=== PATIENT | female | born 1940 | race Caucasian/White ===

== ENCOUNTER → 2016-06-05 | Outpatient (CLI) | payer MEDICARE, BC ==
[~2016-06-05] MED LIST: ASPI-535 PO; CITA10TA84 PO; DIPH25CA6 PO; LORA-401 PO; MONT10TA21 PO; ZOC20 PO; ZOLP10TA5 PO
--- NOTE | 2016-06-05 17:48 | RADRPT ---
PROCEDURE: Left knee radiographs. CLINICAL INDICATION: Left knee pain. Postop. TECHNIQUE: Three views. Weight bearing. Frontal, lateral, and patellar view. COMPARISON: 07/27/2014. FINDINGS: There is no fracture or dislocation. The soft tissues are normal. 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 A screw is noted in the lateral femoral condyle as seen previously. There is no joint effusion. IMPRESSION: 1. Satisfactory postoperative appearance of the left knee. RPTAT: QQ .Fabiano Rojo MD, MD Date Time Electronically viewed and signed by .Fabiano Rojo MD, on 06/05/2016 17:48 .R/
--- NOTE | 2016-06-05 17:49 | RADRPT ---
PROCEDURE: Right knee radiographs. CLINICAL INDICATION: Right knee pain. TECHNIQUE: Four views. Weight bearing. Frontal, lateral, oblique, and patellar view. COMPARISON: 07/27/2014. FINDINGS: There is no fracture or dislocation. The soft tissues are normal. There are degenerative changes with osteophytes arising from all 3 joint compartment margins. There is medial and lateral joint compartment narrowing and chondrocalcinosis. There is no lytic or blastic lesion. There is no radiopaque foreign body. IMPRESSION: 1. Degenerative changes of the right knee. 2. No acute abnormality. 3. No change from 07/27/2014. RPTAT: QQ .Fabiano Rojo MD, MD Date Time Electronically viewed and signed by .Fabiano Rojo MD, MD on 06/05/2016 17:49 .R/
== END | disposition home or self-care (01) ==
LOC: HKI 09:23
PROVIDERS: ATTEND Orthopaedic Surgery
DX: M17.11 Unilateral primary osteoarthritis, right knee (principal); M25.561 Pain in right knee; Z96.652 Presence of left artificial knee joint
CPT/HCPCS: 20610; 73562; 73564; G0463; J7327